=== PATIENT | female | born 2000 | race Caucasian/White ===

== ENCOUNTER 2022-10-23 05:05 | Emergency (ER) | payer OTHER ==
[~2022-10-23] VITALS: Ht 162.6 cm; Wt 57.3 kg
[2022-10-23] MEDS ORDERED: NS 1,000 ML IV ONE (06:20)
[2022-10-23 07:03] LABS: BASO # 0.1 10^3/uL (0.0-0.2); BASO % 0.7 % (0.0-1.0); EOS % 0.4 % (0.0-3.0); HEMATOCRIT 38.8 % (36.0-47.0); HEMOGLOBIN 12.1 g/dl (12.0-15.5); LYMPH # 1.4 10^3/uL (1.5-5.0); LYMPH % 20.3 % (24.0-44.0); MEAN CORPUSCULAR HEMOGLOBIN 24.9 pg (27.0-33.0); MEAN CORPUSCULAR HGB CONC 31.2 g/dl (32.0-36.5); MEAN CORPUSCULAR VOLUME 79.8 fl (80.0-96.0); MONO # 0.3 10^3/uL (0.0-0.8); NEUTROPHILS % 74.2 % (36.0-66.0); PLATELET COUNT, AUTOMATED 216 10^3/uL (150-450); RED BLOOD COUNT 4.86 10^6/uL (4.00-5.40); WHITE BLOOD COUNT 6.7 10^3/uL (4.0-10.0)
[2022-10-23] MEDS ORDERED: ACETAMINOPHEN 325 MG TAB PO ONE (07:18)
[2022-10-23 07:36] LABS: ETHYL ALCOHOL (ETHANOL) < 0.003 % (0.000-0.010)
[2022-10-23 07:38] LABS: ACETAMINOPHEN LEVEL < 2.0 UG/ML (10.0-20.0); ALBUMIN 4.2 G/DL (3.2-5.2); ALKALINE PHOSPHATASE 58 U/L (46-116); ALT/SGPT 16 U/L (7.0-40); AST/SGOT 19 U/L (<34); BILIRUBIN,DIRECT < 0.1 MG/DL (<0.4); BILIRUBIN,TOTAL 0.2 MG/DL (0.3-1.2); BLOOD UREA NITROGEN 16 MG/DL (9-23); CALCIUM LEVEL 9.5 MG/DL (8.5-10.1); CARBON DIOXIDE LEVEL 28 MMOL/L (20-31); CHLORIDE LEVEL 105 MMOL/L (98-107); CPK CREATINE PHOSPHOKINASE 34 U/L (34-145); CREATININE FOR GFR 0.59 MG/DL (0.55-1.30); GLUCOSE, FASTING 99 MG/DL (60-100); POTASSIUM SERUM 4.4 MMOL/L (3.5-5.1); SALICYLATE LEVEL < 3.0 MG/DL (<30); SODIUM LEVEL 138 MMOL/L (136-145); TOTAL PROTEIN 7.3 G/DL (5.7-8.2)
[2022-10-23 07:39] LABS: HCG, SERUM QUALITATIVE NEGATIVE (NEGATIVE)
[2022-10-23 07:40] LABS: THYROID STIMULATING HORMONE 0.427 uIU/ML (0.48-4.17)
[2022-10-23 08:04] LABS: BARBITURATES URINE NEGATIVE (NEGATIVE); BENZODIAZEPINES URINE NEGATIVE (NEGATIVE); COCAINE METABOLITE URINE NEGATIVE (NEGATIVE); METHADONE URINE NEGATIVE (NEGATIVE); OPIATES URINE NEGATIVE (NEGATIVE); PHENCYCLIDINE URINE NEGATIVE (NEGATIVE)
[2022-10-23 08:06] LABS: AMPHETAMINES LEVEL URINE POSITIVE (NEGATIVE); CANNABINOIDS URINE POSITIVE (NEGATIVE)
[2022-10-23] MEDS ORDERED: ISOVUE-370 76% 100ML VIAL As Ordered ONE (09:10)
[2022-10-23] MEDS ORDERED: OLANZapine INTRAMUSCULAR 10MG VIAL IM ONE (09:25)
[2022-10-23] MEDS ORDERED: ONDANSETRON 4MG 2ML VIAL IV ONE (09:25)
[2022-10-23] MEDS ORDERED: MED REC IN PROGRESS XX ONE (10:35)
[2022-10-23] MEDS ORDERED: HOME MED LIST COMPLETE! XX SCH (13:15)
[2022-10-23] MEDS ORDERED: ACETAMINOPHEN 500 MG TAB PO ONE (17:45)
[2022-10-23] MEDS ORDERED: IBUPROFEN 400MG TAB PO ONE (17:45)
[2022-10-23 18:22] VITALS: BP 158/94; TEMP 98.2; O2SAT 98
== END 2022-10-23 18:30 | disposition home or self-care (01) ==
LOC: M ED 05:05
DX: F29 Unspecified psychosis not due to a substance or known physiological condition (principal); I95.9 Hypotension, unspecified; F19.10 Other psychoactive substance abuse, uncomplicated
CPT/HCPCS: 70450; 72125; 74018; 74177; 80048; 80076; 80143; 80307; 82077; 82550; 84443; 84703; 85025; 87635; 93005; 93041; 94760; 96372; 96374; 99291; J2405; Q9967; S0166